=== PATIENT | male | born 1990 | race Caucasian/White ===

== ENCOUNTER 2018-06-15 18:49 | Emergency (ER) | payer OTHER ==
[~2018-06-15] VITALS: Ht 182.9 cm; Wt 68.6 kg
[~2018-06-15 18:49] MED LIST: ATARAX,VISTARIL50 MG PO; METHADONE10 MG PO; MOTRIN800 MG PO; TRILEPTAL75 MG PO
[2018-06-15 20:52] LABS: ALBUMIN 4.8 g/dL (3.2-4.8); CHLORIDE 105 mEq/L (99-109); POTASSIUM 3.9 mEq/L (3.7-5.4); SODIUM 145 mEq/L (136-147)
[2018-06-15 20:54] LABS: HEMATOCRIT 38.9 % (38.0-50.0); MCH 29.3 PG (29.0-34.0); MCV 81.4 FL (86-99); PLATELET COUNT 172 K/uL (156-360); RBC DIS.WIDTH-SD 35.9 % (39-53); RED BLOOD COUNT 4.78 M/uL (4.00-5.50); WHITE BLOOD COUNT 4.3 K/uL (4.1-10.2)
[2018-06-15 20:55] LABS: GLUCOSE 104 mg/dL (70-99); TOTAL PROTEIN 7.9 g/dL (6.4-8.3)
[2018-06-15 20:57] LABS: TOTAL BILIRUBIN 0.9 mg/dL (0.0-1.0)
[2018-06-15 20:58] LABS: ALKALINE PHOSPHATASE 70 IU/L (3-129); SERUM ETHYL ALCOHOL < 10 mg/dL
[2018-06-15 20:59] LABS: CREATININE 0.9 mg/dL (0.6-1.3); GFR ESTIMATE (CALCULATED) > 59 mL/min/ (58.99-99999)
[2018-06-15 21:00] LABS: AST (GOT) 17 IU/L (2-34); UREA NITROGEN (BUN) 8 mg/dL (9-23)
[2018-06-15 21:01] LABS: ALT (GPT) 16 IU/L (3-49)
[2018-06-15 22:39] LABS: AMPHETAMINE PRESUMPTIVE POSITIVE (500 ng/mL); BARBITURATES NEGATIVE (200 ng/mL); BENZODIAZEPINES PRESUMPTIVE POSITIVE (150 ng/mL); BUPRENORPHINE PRESUMPTIVE POSITIVE (10 ng/mL); COCAINE PRESUMPTIVE POSITIVE (150 ng/mL); METHADONE NEGATIVE (200 ng/mL); METHAMPHETAMINE PRESUMPTIVE POSITIVE (500 ng/mL); OPIATES (MORPHINE) NEGATIVE (100 ng/mL); OXYCODONE NEGATIVE (100 ng/mL); PHENCYCLIDINE NEGATIVE (25 ng/mL); PROPOXYPHENE NEGATIVE (300 ng/mL); THC CANNABINOIDS PRESUMPTIVE POSITIVE (50 ng/mL); TRICYCLIC ANTIDEPRESSANTS NEGATIVE (300 ng/mL)
[2018-06-15 23:36] LABS: BENZODIAZEPINES, URINE SCREEN POSITIVE (200 ng/mL)
[2018-06-16 01:57] VITALS: BP 132/85
== END 2018-06-16 01:59 | disposition home or self-care (01) ==
LOC: EME 18:49
PROVIDERS: Emergency Medicine
DX: F15.259 Other stimulant dependence with stimulant-induced psychotic disorder, unspecified (principal); F11.20 Opioid dependence, uncomplicated; F12.20 Cannabis dependence, uncomplicated; F13.20 Sedative, hypnotic or anxiolytic dependence, uncomplicated; F14.99 Cocaine use, unspecified with unspecified cocaine-induced disorder; F19.99 Other psychoactive substance use, unspecified with unspecified psychoactive substance-induced disorder; F22 Delusional disorders; F32.9 Major depressive disorder, single episode, unspecified; F41.9 Anxiety disorder, unspecified; F17.200 Nicotine dependence, unspecified, uncomplicated
CPT/HCPCS: 80053; 84999; 85027; 90839; 99281; 99284; G0480